=== PATIENT | female | born 1945 | race Hispanic/Latino ===

== ENCOUNTER 2016-07-18 09:26 | Outpatient (CLI) | payer MEDICARE, OTHER ==
--- NOTE | 2016-07-18 10:21 | Mammography Report ---
Left mammogram: Compared to 07/03/15. CAD study utilized. Findings: Predominance of adipose tissue left breast. Subareolar calcification without interval change. Biopsy clip left breast. Normal axilla. Impression: Benign findings. Annual followup recommended. BI-RADS CATEGORY: 2 = Benign ACR BI-RADS MAMMOGRAPHIC CODES: 0 = Needs additional imaging evaluation; 1 = Negative; 2 = Benign; 3 = Probably benign; 4 = Suspicious; 5 = Malignant; 6 = Known biopsy-proven malignancy COMMENT: 1. Dense breast tissue, i.e., adenosis, fibrocystic changes, etc., may obscure an underlying neoplasm. 2. Approximately 10% of cancers are not detected with mammography. 3. A negative mammography report should not delay biopsy if a clinically suspicious mass is present.
== END 2016-07-18 09:27 | disposition home or self-care (01) ==
LOC: MAMMO 09:26
PROVIDERS: ATTEND Internal Medicine
DX: Z12.31 Encounter for screening mammogram for malignant neoplasm of breast (principal)
CPT/HCPCS: G0202-52

== ENCOUNTER 2017-07-29 13:11 | Outpatient (CLI) | payer MEDICARE, OTHER ==
--- NOTE | 2017-07-31 09:30 | Mammography Report ---
Left mammogram: The patient is post right mastectomy for cancer. Images of the left breast are compared to prior exams dating back to June 2015. There is a biopsy clip in a small nodule in the superolateral breast. The breast pattern is not otherwise remarkable and these findings are unchanged from prior exams. CAD used. Impression: Stable left mammogram post right mastectomy. Recommendation: Annual followup. BI-RADS CATEGORY: 1 = Negative ACR BI-RADS MAMMOGRAPHIC CODES: 0 = Needs additional imaging evaluation; 1 = Negative; 2 = Benign; 3 = Probably benign; 4 = Suspicious; 5 = Malignant; 6 = Known biopsy-proven malignancy COMMENT: 1. Dense breast tissue, i.e., adenosis, fibrocystic changes, etc., may obscure an underlying neoplasm. 2. Approximately 10% of cancers are not detected with mammography. 3. A negative mammography report should not delay biopsy if a clinically suspicious mass is present.
== END 2017-07-29 13:12 | disposition home or self-care (01) ==
LOC: MAMMO 13:11
PROVIDERS: ATTEND Physician Assistant Medical
DX: Z12.31 Encounter for screening mammogram for malignant neoplasm of breast (principal)

== ENCOUNTER 2018-08-03 08:34 | Outpatient (CLI) | payer MEDICARE, OTHER ==
--- NOTE | 2018-08-03 11:59 | Mammography Report ---
Left mammogram: Cancer survivor with right mastectomy and benign left breast biopsy. Routine imaging of the left breast demonstrates an intermediate fibroglandular pattern density. Small biopsy marker is identified in the upper-outer breast. The findings are not otherwise remarkable change when compared to her prior exams dating back to June 2016. CAD used. Impression: Stable left breast pattern post right mastectomy. BI-RADS CATEGORY: 1 = Negative ACR BI-RADS MAMMOGRAPHIC CODES: 0 = Needs additional imaging evaluation; 1 = Negative; 2 = Benign; 3 = Probably benign; 4 = Suspicious; 5 = Malignant; 6 = Known biopsy-proven malignancy COMMENT: 1. Dense breast tissue, i.e., adenosis, fibrocystic changes, etc., may obscure an underlying neoplasm. 2. Approximately 10% of cancers are not detected with mammography. 3. A negative mammography report should not delay biopsy if a clinically suspicious mass is present.
== END 2018-08-03 08:35 | disposition home or self-care (01) ==
LOC: MAMMO 08:34
PROVIDERS: ATTEND Internal Medicine
DX: Z12.31 Encounter for screening mammogram for malignant neoplasm of breast (principal)

== ENCOUNTER 2019-08-09 10:26 | Outpatient (CLI) | payer MEDICARE, OTHER ==
--- NOTE | 2019-08-09 14:13 | Mammography Report ---
DIGITAL SCREENING MAMMOGRAM WITH CAD, 08/09/2019 INDICATION: Routine screening mammography. Breast cancer survivor status post right mastectomy and pr evious left benign biopsy. TECHNIQUE: Digital bilateral 2D mammography was obtained in the craniocaudal and mediolateral obliq ue projections. This examination was interpreted with the benefit of Computer-Aided Detection analysi s. COMPARISON: 08/03/2018 FINDINGS: Breast Density: There are scattered fibroglandular densities. There is no evidence of dominant mass, suspicious calcifications or architectural distortion in the l eft breast. An outer biopsy clip with a stable circumscribed density at the clip. IMPRESSION: No mammographic evidence of malignancy. Follow up recommendation: Routine yearly BI-RADS Category 2: Benign. A "normal" or negative report should not discourage follow up or biopsy of a clinically significant f inding. A written summary of these findings will be mailed to the patient. The patient will be entered into a mammography reporting system which will generate a reminder letter for the patient's next appointmen t at the appropriate interval. [employer] recommends yearly mammograms starting at age 40 and continuing as l david as a woman is in good health. Breast MRI is recommended for women with an approximate 20-25% or greater lifetime risk of breast cancer, including women with a strong family history of breast or ova laz cancer or who have been treated for Hodgkin's disease. Signer Name: Kraig Jonhs MD Signed: 08/09/2019 2:09 PM Workstation Name: [id number]
== END 2019-08-09 10:27 | disposition home or self-care (01) ==
LOC: MAMMO 10:26
PROVIDERS: ATTEND Internal Medicine
DX: Z12.31 Encounter for screening mammogram for malignant neoplasm of breast (principal); N64.89 Other specified disorders of breast